=== PATIENT | female | born 1975 | race African-American/Black ===

== ENCOUNTER 2018-01-22 11:58 | Emergency (ER) | payer MEDICAID ==
[~2018-01-22] VITALS: Ht 170.2 cm; Wt 98.0 kg
[~2018-01-22 11:58] MED LIST: IBUPROFEN OTC; PREN1COM
[2018-01-22 17:08] VITALS: BP 131/70
[2018-01-22] MEDS ORDERED: IBUPROFEN 400MG TABLET PO ONE (17:15)
== END 2018-01-22 17:18 | disposition home or self-care (01) ==
LOC: ER 11:58
DX: N64.4 Mastodynia (principal); F17.200 Nicotine dependence, unspecified, uncomplicated; Z79.899 Other long term (current) drug therapy
CPT/HCPCS: 76641; 81025; 99284

== ENCOUNTER 2018-05-28 13:47 | Emergency (ER) | payer MEDICAID ==
[~2018-05-28] VITALS: Ht 172.7 cm; Wt 108.0 kg
[2018-05-28 14:21] VITALS: BP 130/79
== END 2018-05-28 20:24 | disposition left against medical advice (07) ==
LOC: ER 13:47
DX: Z53.21 Procedure and treatment not carried out due to patient leaving prior to being seen by health care provider (principal); F17.200 Nicotine dependence, unspecified, uncomplicated

== ENCOUNTER 2022-12-25 14:05 | Emergency (ER) | payer MEDICAID, OTHER ==
[~2022-12-25] VITALS: Ht 170.2 cm; Wt 118.0 kg
[2022-12-25 14:32] VITALS: O2SAT 100
[2022-12-25 17:30] VITALS: BP 135/81
[2022-12-25] MEDS ORDERED: KETOROLAC 60MG/2ML VIAL IM ONE (17:30)
[2022-12-25] MEDS ORDERED: DEXAMETHASONE 2MG TABLET PO ONE (18:30)
[2022-12-25] MEDS ORDERED: METH-653 MT (19:43)
[2022-12-25 20:27] VITALS: PULSE 66; RESP 18; TEMP 98.2
== END 2022-12-25 20:28 | disposition home or self-care (01) ==
LOC: ER 15:36
DX: M31.19 Other thrombotic microangiopathy (principal); M79.604 Pain in right leg; M54.50 Low back pain, unspecified
CPT/HCPCS: 99284; 81025; 73502; 73562; 96372; J8540; J1885

== ENCOUNTER 2024-09-09 13:48 | Emergency (ER) | payer OTHER ==
[~2024-09-09] VITALS: Ht 170.2 cm; Wt 112.0 kg
[~2024-09-09 13:48] MED LIST changes: +METH-653 MT
[2024-09-09 13:59] VITALS: O2SAT 99
[2024-09-09 14:24] LABS: BASOPHILS % 0.8 % (0.0-2.0); EOSINOPHILS % 3.4 % (0.0-5.0); HEMATOCRIT. 41.7 % (36.0-48.0); HEMOGLOBIN. 14.4 g/dL (12.0-16.0); LYMPHOCYTES % 21.6 % (20.0-50.0); MEAN PLATELET VOLUME 6.7 fl (7.4-10.4); MONOCYTES % 7.2 % (2.0-8.0); NEUTROPHILS % 67.0 % (40.0-76.0); PLATELET 312 x1000/uL (130-400); RED BLOOD CELL COUNT 4.61 mill/uL (4.2-5.4); RED CELL DISTRIBUTION WIDTH 12.8 % (11.6-14.6)
[2024-09-09 14:38] LABS: CREATININE 0.9 mg/dL (0.6-1.0); UREA NITROGEN BLOOD 8 mg/dL (9-23)
[2024-09-09 14:39] LABS: TROPONIN I HIGH SENSITIVITY < 4 ng/L (3.0-34)
[2024-09-09] MEDS ORDERED: ALBU18HF2 IH (15:07)
[2024-09-09 15:54] VITALS: BP 118/96; PULSE 88; RESP 18; TEMP 36.9; O2SAT 98
== END 2024-09-09 15:55 | disposition home or self-care (01) ==
LOC: ER 13:48
DX: T62.8X1A Toxic effect of other specified noxious substances eaten as food, accidental (unintentional), initial encounter (principal); R06.09 Other forms of dyspnea; I10 Essential (primary) hypertension; M19.90 Unspecified osteoarthritis, unspecified site; F10.90 Alcohol use, unspecified, uncomplicated; Y90.9 Presence of alcohol in blood, level not specified; Y92.89 Other specified places as the place of occurrence of the external cause
CPT/HCPCS: 36415; 71045; 80048; 84484; 85025; 93005; 99285

== ENCOUNTER 2025-01-31 14:59 | Emergency (ER) | payer OTHER ==
[~2025-01-31] VITALS: Ht 170.2 cm; Wt 118.0 kg
[~2025-01-31 14:59] MED LIST changes: +ALBU18HF2 IH
[2025-01-31 15:00] VITALS: O2SAT 100
[2025-01-31 15:11] VITALS: BP 138/94; PULSE 106; RESP 16; TEMP 36.8; O2SAT 99
[2025-01-31] MEDS ORDERED: DOXY-244 MT (16:57)
[2025-01-31] MEDS ORDERED: CEPH500T MT (16:57)
== END 2025-01-31 17:15 | disposition home or self-care (01) ==
LOC: ER 14:59
DX: L02.92 Furuncle, unspecified (principal); N64.4 Mastodynia; I10 Essential (primary) hypertension; M19.90 Unspecified osteoarthritis, unspecified site
CPT/HCPCS: 99283